=== PATIENT | female | born 1945 | race Caucasian/White ===

== ENCOUNTER → 2017-09-17 | Outpatient (CLI) | payer OTHER, MEDICARE ==
[~2017-09-17] MED LIST: LIDOCAINE 1% 300 MG/30 ML SDV ONE
== END ==
LOC: FIMAGING 14:19
PROVIDERS: ATTEND Internal Medicine Hematology & Oncology
PROC: 0D9W3ZZ Drainage of Peritoneum, Percutaneous Approach (ICD-10-PCS; principal; 2017-09-17)
DX: R18.8 Other ascites (principal)

== ENCOUNTER → 2018-02-08 | Outpatient (CLI) | payer OTHER, MEDICARE | LOC: FIMAGING 10:13 | PROVIDERS: ATTEND Obstetrics & Gynecology Gynecologic Oncology | DX: Z08 Encounter for follow-up examination after completed treatment for malignant neoplasm (principal); R11.2 Nausea with vomiting, unspecified; J98.11 Atelectasis; Z85.43 Personal history of malignant neoplasm of ovary ==

== ENCOUNTER 2018-03-22 14:26 | Inpatient (IN) | payer OTHER, MEDICARE ==
[2018-03-22] MEDS ORDERED: NS 2,300 ML IV ONE (15:51)
--- NOTE | 2018-03-22 15:51 | EDPHY ---
H & P Time Seen by Provider: 03/22/18 15:32 HPI/ROS: CHIEF COMPLAINT: Fever cough and lethargy HISTORY OF PRESENT ILLNESS: Patient is had several days of fever cough and lethargy, per Dr. Novoa a a CT scan performed in March 18 through [facility] she had a new fluid collection which is enhancing between her liver and right diaphragm. The over the weekend she continues to have cough and fever and some sputum production. Denies any chest pain to me. No vomiting or diarrhea. Lethargy is severe and she just feels very tired. REVIEW OF SYSTEMS: Eye: no change in vision ENT: no sore throat Cardiac: no chest pain or syncope Pulmonary: HPI Abdomen: no vomiting, diarrhea, abdominal pain Musculoskeletal: no back pain Skin: no rash Neuro: no headache Constitutional: HPI fever and chills : no urinary symptoms A comprehensive 10 point review of systems is otherwise negative aside from elements mentioned in the history of present illness. PAST MEDICAL HISTORY: Includes ovarian cancer, right knee replacement, hysterectomy Social history: Currently nonsmoker General Appearance: Alert and conversant, cooperative. Eyes: No scleral icterus. ENT, Mouth: Normal mucous membranes. Respiratory: Decreased breath sounds at the bases bilaterally but the patient speaks in full sentences. Cardiovascular: Regular rate and rhythm. Gastrointestinal: Abdomen is soft and non tender. Midline incision is clean dry and intact without surrounding redness or warmth, there is a 2 x 2 gauze over the center of the incision which is clean dry and intact. Neurological: Alert, face symmetric, normal motor and sensory in extremities. Skin: Warm and dry, no rashes. Musculoskeletal: No peripheral edema. Psychiatric: Not agitated. Emergency Department course/MDM: 1550: discussed with Jimenez for Isra. 1608: discussed with Bright: new fluid collection between liver and right diaphragm, enhancing. Dr. Nolen aware at 4:30 p.m.. Admission hospitalist service, will need further evaluation for possible drainage of that fluid collection. No antibiotics at this time. Does not appear septic or toxic. Chest x-ray from today read by Dr. Mcelroy negative for pneumonia. Influenza pending. Smoking Status: Former smoker Constitutional: Initial Vital Signs Temperature (C) 37.3 C 03/22/18 14:34 Heart Rate 91 03/22/18 14:34 Respiratory Rate 16 03/22/18 14:34 Blood Pressure 111/63 03/22/18 14:34 O2 Sat (%) 95 03/22/18 14:34 O2 Delivery Mode Room Air Allergies/Adverse Reactions: codeine Allergy (Unknown, Verified 03/22/18 14:32) Other-Enter Comments Home Medications: Medication Instructions Recorded Cholecalciferol Vit D3 [Vitamin D3 1,000 units PO DAILY 04/06/14 (*)] Docusate Sodium [Colace 100 MG (*)] 100 mg PO BID PRN 09/05/17 Levothyroxine [Synthroid 75 mcg 75 mcg PO DAILY06 09/05/17 (*)] Medical Decision Making - Data Points Laboratory Results: 03/22/18 03/22/18 03/22/18 16:07 16:07 16:07 WBC RBC Hgb Hct MCV MCH MCHC RDW Plt Count MPV Neut % (Auto) Lymph % (Auto) Teller % (Auto) Eos % (Auto) Baso % (Auto) Nucleat RBC Rel Count Absolute Neuts (auto) Absolute Lymphs (auto) Absolute Monos (auto) Absolute Eos (auto) Absolute Basos (auto) Absolute Nucleated RBC Immature Gran % Immature Gran # PT Pending INR Pending APTT Pending VBG Lactic Acid 0.9 mmol/L mmol/L (0.7-2.1) Sodium Pending Potassium Pending Chloride Pending Carbon Dioxide Pending Anion Gap Pending BUN Pending Creatinine Pending Estimated GFR Pending Glucose Pending Calcium Pending 03/22/18 16:07 WBC Pending RBC Pending Hgb Pending Hct Pending MCV Pending MCH Pending MCHC Pending RDW Pending Plt Count Pending MPV Pending Neut % (Auto) Pending Lymph % (Auto) Pending Teller % (Auto) Pending Eos % (Auto) Pending Baso % (Auto) Pending Nucleat RBC Rel Count Pending Absolute Neuts (auto) Pending Absolute Lymphs (auto) Pending Absolute Monos (auto) Pending Absolute Eos (auto) Pending Absolute Basos (auto) Pending Absolute Nucleated RBC Pending Immature Gran % Pending Immature Gran # Pending PT INR APTT VBG Lactic Acid Sodium Potassium Chloride Carbon Dioxide Anion Gap BUN Creatinine Estimated GFR Glucose Calcium Medications Given: Discontinued Medications Sodium Chloride (Ns) 2,300 mls @ 4,600 mls/hr 30 ml/kg infuse over 30 min ( 2300 ml) IV EDNOW ONE PRN Reason: Protocol Stop: 03/22/18 16:20 Last Admin: 03/22/18 16:10 Dose: 2,300 mls Departure - Departure Disposition: [facility] Inpatient Acute Clinical Impression: Intraabdominal fluid collection Condition: Fair
[2018-03-22 16:30] LABS: PLATELET COUNT 310 10^3/uL (150-400)
[2018-03-22 16:41] LABS: INR 1.19 (0.83-1.16); PROTIME(PATIENT) 15.3 SEC (12.0-15.0)
[2018-03-22] MEDS ORDERED: SENNOSIDES/DOCUSATE SODIUM TAB PO PRN (17:30)
[2018-03-22] MEDS ORDERED: LIDOCAINE 2% VISCOUS 15 ML UDCUP PO PRN (17:34)
[2018-03-22] MEDS ORDERED: HYOSCYAMINE SULFATE 0.125 MG TAB PO PRN (17:34)
[2018-03-22] MEDS ORDERED: PROMETHAZINE HCL 25 MG/ML INJ IVP PRN (17:34)
[2018-03-22] MEDS ORDERED: ONDANSETRON 4 MG/2 ML VIAL IVP PRN (17:34)
[2018-03-22] MEDS ORDERED: MAG HYDROX/AL HYDROX/SIMETH 30 ML UDCUP PO PRN (17:34)
[2018-03-22] MEDS ORDERED: D5W 1/2 NS W/ 20 KCl/L 1,000 ML IV SCH (17:45)
--- NOTE | 2018-03-22 17:51 | GHP ---
[f rep st] HISTORY AND PHYSICAL DATE OF ADMISSION: 03/22/2018 CHIEF COMPLAINT: Fever, cough, and lethargy. HISTORY OF PRESENT ILLNESS: This is a 73-year-old female, with a history of stage IV ovarian cancer, who has undergone chemotherapy, as well as a debulking procedure by Dr. Estiven Castelan last month. She presents to the emergency department today with fever, cough, and lethargy. Per ER report, the patient underwent a CT scan of the abdomen on March 18 at [facility] for routine staging status post debulking surgery. Per ER report, the patient was noted to have a new fluid collection, which is enhancing between her liver and right diaphragm. On Wednesday, she developed dry heaves, chills, and body aches. She states that she has been eating. Her bowel movements have been normal. She has been very weak since the onset of her symptoms on Wednesday. PAST MEDICAL HISTORY: 1. Stage IV ovarian cancer, status post debulking procedure by Dr. Estiven Castelan. 2. Right knee replacement. 3. Hysterectomy. HOME MEDICATIONS: Reviewed. Refer to [facility] for details. ALLERGIES: Codeine. SOCIAL HISTORY: The patient denies any alcohol, tobacco, or illicit drug use. She lives in [place] with her . FAMILY HISTORY: Reviewed and noncontributory. REVIEW OF SYSTEMS: The patient reports some chest tightness that is not exertional. It feels like she has burning under her sternum. Comprehensive 10- point review of systems was done and was negative except as mentioned in the HPI. PHYSICAL EXAM: VITAL SIGNS: Blood pressure 128/69, pulse 82, respiratory rate 16, O2 saturation 93% on room air, and temperature afebrile. GENERAL: No acute distress. HEAD: Normocephalic, atraumatic. EYES: PERRLA. Sclerae anicteric. MOUTH: Dry oral mucosa. NECK: Supple. No lymphadenopathy. CARDIOVASCULAR: S1 and S2. No murmurs, rubs, clicks, or gallops. No JVD. No lower extremity edema. PULMONARY: Lungs are clear. No wheezes, rales, or rhonchi. ABDOMEN: Soft, nontender, and nondistended. No guarding or rebound tenderness. Normoactive bowel sounds. There is a vertical incision over the abdomen that is closed and does not appear to be infected. EXTREMITIES: No clubbing or cyanosis. NEUROLOGICAL: Cranial nerves 2 through 12 grossly intact. No focal motor or sensory deficits. SKIN: Clear. No rashes. DIAGNOSTICS: WBC 6.15, hemoglobin 10.8, hematocrit 32.5, and platelets 310. INR 1.19. Venous lactic acid was 0.9. Sodium 135, potassium 4.1, chloride 105 , CO2 of 22, BUN 19, creatinine 0.7, glucose 101, and calcium 9.2. Nasal influenza is pending. ASSESSMENT: This is a 73-year-old female with a history of stage IV ovarian cancer presenting with: 1. Fevers, chills, and cough suspicious for influenza versus below. 2. Reported new fluid collection, which is enhancing between the liver and the diaphragm, which could be a source of infection also causing her symptoms as noted above. 3. Chest pressure, which I suspect is due to reflux. PLAN: 1. Place on observation. 2. Await influenza testing and keep in isolation until those are resulted back. 3. We will consult Interventional Radiology to attempt to drain the fluid collection seen on CT. 4. The patient was scheduled to have a port placed today by Dr. Nolen. Dr. Nolen is aware of her hospitalization. 5. We will consult Oncology. 6. The patient requests to be full code status. ADDENDUM: A chest x-ray done earlier today as an outpatient was reviewed showing a new nodule left lung base. PLAN: I would recommend reviewing the CT of the abdomen that was done at [facility] to see if this nodule is visible. If not, would recommend further workup to further evaluate the nodule seen on chest x-ray. /[id number]/MODL and [id number]/MODL MTDD
[2018-03-22] MEDS: PANTOPRAZOLE SODIUM 40 MG TAB PO SCH (18:52)
[2018-03-22] MEDS: DOCUSATE SODIUM 100 MG CAP PO SCH (21:42)
[2018-03-23] MEDS: LEVOTHYROXINE 75 MCG TAB PO SCH (04:38)
[2018-03-23 05:28] LABS: PLATELET COUNT 264 10^3/uL (150-400)
[2018-03-23] MEDS ORDERED: ceFAZolin 2 GM/DEXTROSE 100 ML IV ONE (07:54)
[2018-03-23] MEDS ORDERED: NALOXONE HCL 0.4 MG/ML INJ IVP PRN (07:54)
[2018-03-23] MEDS ORDERED: fentaNYL 100 MCG/2 ML INJ IVP PRN (07:54)
[2018-03-23] MEDS ORDERED: MIDAZOLAM 2 MG/2 ML VIAL IVP PRN (07:54)
[2018-03-23] MEDS ORDERED: FLUMAZENIL 0.5 MG/5 ML MDV IVP PRN (07:54)
[2018-03-23] MEDS ORDERED: LIDOCAINE 1% 300 MG/30 ML SDV ONE (07:56)
[2018-03-23] MEDS ORDERED: NS 1,000 ML IV SCH (08:00)
[2018-03-23] MEDS ORDERED: NALOXONE HCL 0.4 MG/ML INJ ONE (08:05)
[2018-03-23] MEDS ORDERED: MIDAZOLAM 2 MG/2 ML VIAL ONE (08:06)
[2018-03-23] MEDS: CHOLECALCIFEROL VIT D3 1,000 UNITS TAB PO SCH (08:50)
[2018-03-23] MEDS: PANTOPRAZOLE SODIUM 40 MG TAB PO SCH (08:51)
[2018-03-23] MEDS: ENOXAPARIN 40 MG/0.4 ML SYR SC SCH (08:51)
[2018-03-23] MEDS: DOCUSATE SODIUM 100 MG CAP PO SCH ×3 (08:51→22:11)
--- NOTE | 2018-03-23 09:18 | PDRADPRE ---
Radiology History & Physical Indication for procedure: abscess Significant medical history: other (Stage IV Ovarian cancer) Surgical history: JULIUS/BSO, debulking Home medications: RX: Cholecalciferol Vit D3 [Vitamin D3 (*)] 1,000 units PO DAILY 04/06/14 [Last Taken 09/04/17] RX: Docusate Sodium [Colace 100 MG (*)] 100 mg PO BID 09/05/17 [Last Taken Unknown] RX: Levothyroxine [Synthroid 75 mcg (*)] 75 mcg PO DAILY06 09/05/17 [Last Taken 03/22/18] Sennosides/Docusate Sodium [Senokot-S (OTC)] 4 each PO HS PRN 03/22/18 [Last Taken Unknown] Allergies/Adverse Reactions: codeine Allergy (Unknown, Verified 03/22/18 14:32) Other-Enter Comments Mental status: A&Ox3 Heart exam: regular rate and rhythm Lungs exam: clear to auscultation Mallampati Score: Class 2
--- NOTE | 2018-03-23 09:18 | PDPROPOC ---
Sedation Plan of Care Sedation Plan of Care: vital signs stable, mental status noted, patient educated of risks, benefits, alternatives, patient can tolerate sedation ASA Classification: ASA 2 Planned drugs: fentanyl, midazolam Mallampati Score: Class 2 Mallampati Reference Image: Patient passed 3-3-2 rule?: Yes
--- NOTE | 2018-03-23 10:16 | PDRADPN ---
Radiology Procedure Note Date of Procedure: 03/23/18 Radiologist: Morris Cutler Anesthesia: IV Sedation Pre-op Diagnosis: Stage IV Ovarian cancer; Perihepatic abscess Post-op Diagnosis: same Indication: R/O abscess Procedure: U/S guided abscess drainage Finding(s): 350 mL dark yellow purulent fluid drained w 10 fr drainage catheter Inf/Abcess present in the surg proc area at time of surgery?: Yes Depth: Organ Space EBL: Minimal Drains: Other (10 fr drainage catheter)
[2018-03-23] MEDS: ACETAMINOPHEN 325 MG TAB PO PRN ×2 (11:28→17:38)
[2018-03-23] MEDS ORDERED: oxyCODONE IR 5 MG TAB PO PRN (11:53)
--- NOTE | 2018-03-23 15:01 | ASMTCMCOM ---
CM Note CM Note Notes: Plan of care reviewed in rounds. 73 year old female with history of ovarian cancer with recent tumor debulking presented to ED with nausea and chills and lethargy. Liver abscess identified and drained. Patient normally lives independent with her . CM to follow for needs. Plan: TBD Date Signed: 03/23/2018 03:01 PM Electronically Signed By:Eva Quintero RN
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
--- NOTE | 2018-03-23 18:47 | HOSPPROG ---
Hospitalist Progress Note Assessment/Plan: * Intra-abdominal fluid collection -await culture - antibiotics if positive * Viral URI -resp PCR pending * Stage IIIc ovarian cancer s/p chemo/debulking -further chemo planned with Dr. Dhaliwal once improved * Left pleural effusion -no recurrence on current CXR Subjective: Still with cough but overall improving. Objective: Vital Signs Temp Pulse Resp BP Pulse Ox 36.6 C 73 18 108/56 L 93 03/23/18 15:01 03/23/18 15:01 03/23/18 15:01 03/23/18 15:01 03/23/18 15:01 Microbiology 03/23/18 09:43 Gram Stain - Final Liver - Other Laboratory Results 03/23/18 04:34 03/23/18 04:34 03/22/18 03/23/18 03/24/18 05:59 05:59 05:59 Intake Total 1274 Output Total 380 Balance 894 PT 15.3 SEC (12.0-15.0) H 03/22/18 16:07 INR 1.19 (0.83-1.16) H 03/22/18 16:07 CXR viewed, my personal interpretation is - negative d/w DR. dhaliwal regarding plan for fluid collection - Physical Exam Constitutional: no apparent distress, appears nourished, not in pain Cardiovascular: regular rate and rhythym, no murmur, rub, or gallop Respiratory: no respiratory distress, no rales or rhonchi, clear to auscultation Gastrointestinal: normoactive bowel sounds, soft, non-tender abdomen, no palpable masses Skin: no rashes or abrasions, no fluctuance, no induration Neurologic: AAOx3, sensation intact bilaterally Psychiatric: interacting appropriately, not anxious, not encephalopathic, thought process linear ICD10 Worksheet Patient Problems: Problems Problem Status Onset Osteoarthritis of knee Acute Abdominal carcinomatosis Acute Pleural effusion on left Acute Lesion of liver Acute Malignant ascites Acute Intraabdominal fluid collection Acute
[2018-03-24] MEDS: ACETAMINOPHEN 325 MG TAB PO PRN (03:24)
[2018-03-24] MEDS: LEVOTHYROXINE 75 MCG TAB PO SCH (05:11)
[2018-03-24] MEDS: ENOXAPARIN 40 MG/0.4 ML SYR SC SCH (08:20)
[2018-03-24] MEDS: CHOLECALCIFEROL VIT D3 1,000 UNITS TAB PO SCH (08:20)
[2018-03-24] MEDS: DOCUSATE SODIUM 100 MG CAP PO SCH ×2 (08:20→20:21)
--- NOTE | 2018-03-24 08:49 | PDMN ---
Medical Necessity Medical necessity: Pt meets IP criteria as of 03/23/2018 per and FITO REED ( gastroenterology [facility]); los > 2mn for ongoing tx and management of perihepatic post operative fluid collection in the setting of stage IIIC ovarian cancer on chemotherapy as well as URI with cough, fever and chills; requiring IR consultation with u/s guided abcess drainage, further workup, oncology consultation, and PT/OT.
[2018-03-24] MEDS ORDERED: ALBUTEROL 3 ML DEYVIAL IH PRN (15:44)
[2018-03-24] MEDS ORDERED: guaiFENesin/CODEINE PHOS 10 ML UDCUP PO PRN (15:45)
[2018-03-24] MEDS ORDERED: BENZONATATE 100 MG CAP PO PRN (15:45)
--- NOTE | 2018-03-24 15:49 | HOSPPROG ---
Hospitalist Progress Note Assessment/Plan: * Intra-abdominal fluid collection s/p IR drain -abscess vs. malignant vs. post-op recent debulking -cultures negative - hold abx unless positive -cytology pending -still high GABBY drain output * Viral URI -supportive care, still very weak/SOB -consider w/u PE if resp difficulties continue - CXR negative * Stage IIIc ovarian cancer s/p chemo/debulking -further chemo planned with Dr. Dhaliwal once improved * Weakness -may need SNF, continue PT/OT Subjective: Still very weak, coughing Objective: Vital Signs Temp Pulse Resp BP Pulse Ox 36.7 C 83 18 132/64 H 90 L 03/24/18 11:53 03/24/18 11:53 03/24/18 11:53 03/24/18 11:53 03/24/18 11:53 03/23/18 03/24/18 03/25/18 05:59 05:59 05:59 Intake Total 1074 240 Output Total 70 20 Balance 1004 220 PT 15.3 SEC (12.0-15.0) H 03/22/18 16:07 INR 1.19 (0.83-1.16) H 03/22/18 16:07 - Physical Exam Constitutional: no apparent distress, appears nourished, not in pain Cardiovascular: regular rate and rhythym, no murmur, rub, or gallop Respiratory: respiratory distress, No expiratory wheeze, No inspiratory crackles , No rhonchi Gastrointestinal: normoactive bowel sounds, soft, non-tender abdomen, no palpable masses Skin: no rashes or abrasions, no fluctuance, no induration Neurologic: AAOx3, sensation intact bilaterally Psychiatric: interacting appropriately, not anxious, not encephalopathic, thought process linear ICD10 Worksheet Patient Problems: Problems Problem Status Onset Intraabdominal fluid collection Acute Abdominal carcinomatosis Acute Lesion of liver Acute Malignant ascites Acute Osteoarthritis of knee Acute Pleural effusion on left Acute
--- NOTE | 2018-03-24 16:24 | ASMTCMCOM ---
CM Note CM Note Notes: Pt spoke with RN, Palliative Care was ordered. At this time PT rec: HHC vs SNF. CM to follow as needs progress. Plan: HHC vs SNF Date Signed: 03/24/2018 04:23 PM Electronically Signed By:ANDRA Hughes
[2018-03-24] MEDS: guaiFENesin 600 MG TAB.ER PO SCH (20:23)
[2018-03-25 05:02] LABS: PLATELET COUNT 273 10^3/uL (150-400)
[2018-03-25] MEDS: LEVOTHYROXINE 75 MCG TAB PO SCH (05:42)
--- NOTE | 2018-03-25 11:53 | ASMTCMCOM ---
CM Note CM Note Notes: Pt met with Ira and is choosing to have out-pt palliative care with [facility]. A referral will be sent to [facility] for palliative care. D/C Plan: SNF vs HHC, [facility] Date Signed: 03/25/2018 11:52 AM Electronically Signed By:Rafia Miller
[2018-03-25] MEDS: guaiFENesin 600 MG TAB.ER PO SCH ×2 (12:14→21:33)
[2018-03-25] MEDS: CHOLECALCIFEROL VIT D3 1,000 UNITS TAB PO SCH (12:15)
[2018-03-25] MEDS: DOCUSATE SODIUM 100 MG CAP PO SCH ×2 (12:15→21:33)
--- NOTE | 2018-03-25 14:57 | HOSPPROG ---
Hospitalist Progress Note Assessment/Plan: # intra-abdominal abscess s/p IR placed GABBY drain - recent debulking procedure last month - growing bacteroides thetaiotamicron - start unasyn (informally discussed with Dr Rojas) - recheck CT scan to evaluate drainage # stage IIIc ovarian cancer - chemo with Dr Dhaliwal when abscess resolved # viral URI - pcr negative Subjective: patient seen with her ; we discussed her culture data in depth Objective: Vital Signs Temp Pulse Resp BP Pulse Ox 36.8 C 82 16 126/66 H 90 L 03/25/18 11:30 03/25/18 11:30 03/25/18 11:30 03/25/18 11:30 03/25/18 11:30 Laboratory Results 03/25/18 04:48 03/24/18 03/25/18 03/26/18 05:59 05:59 05:59 Intake Total 1074 560 Output Total 70 40 Balance 1004 520 PT 15.3 SEC (12.0-15.0) H 03/22/18 16:07 INR 1.19 (0.83-1.16) H 03/22/18 16:07 - Time Spent With Patient Time Spent with Patient: greater than 35 minutes Time Spent with Patient: Greater than 35 minutes spent on this patients care, greater than 50% of time spent counseling, educating, and coordinating care regarding the above mentioned plan. ICD10 Worksheet Patient Problems: Problems Problem Status Onset Osteoarthritis of knee Acute Abdominal carcinomatosis Acute Pleural effusion on left Acute Lesion of liver Acute Malignant ascites Acute Intraabdominal fluid collection Acute
[2018-03-25] MEDS ORDERED: IOHEXOL 300 mgI/ML (OMNIPAQUE) 150 ML BTL IV ONE (16:01)
[2018-03-25] MEDS: ENOXAPARIN 40 MG/0.4 ML SYR SC SCH (17:08)
[2018-03-25] MEDS: AMPICILLIN/SULBACTAM 3 GM in NS 100 ML IV SCH ×2 (17:08→21:33)
--- NOTE | 2018-03-25 17:55 | SOAPPROG ---
SOAP Progress Note Assessment/Plan: A/P: * Periphepatic abscess (Bacteroides) following interval debulking surgery: repeat CT to evaluate adequate drainage of fluid collection. IV abx (Unasyn). She is not toxic, this was incidentally discovered. Can be discharged soon. * IIIC ovarian cancer: s/p neoadjuvant chemo and interval debulking with no gross residual disease. Plan to resume chemo once infection resolved. She is getting set up with [facility]. 03/25/18 17:53 Subjective: S: No new complaints. O: VS reviewed, AF Gen: up in room, NAD. Lungs: breathing comfortably. Abd: GABBY drain with serosanguinous fluid. Laboratory Tests 03/25/18 04:48 WBC 3.41 L Hgb 10.9 L Plt Count 273 Absolute Neuts (auto) 2.15 Fluid cx - Bacteroides thetaiotamicron Objective: Vital Signs Temp Pulse Resp BP Pulse Ox 37.0 C 86 18 120/74 92 03/25/18 16:00 03/25/18 16:00 03/25/18 16:00 03/25/18 16:00 03/25/18 16:00 Laboratory Results 03/25/18 04:48 03/24/18 03/25/18 03/26/18 05:59 05:59 05:59 Intake Total 1074 560 500 Output Total 70 40 10 Balance 1004 520 490 PT 15.3 SEC (12.0-15.0) H 03/22/18 16:07 INR 1.19 (0.83-1.16) H 03/22/18 16:07 ICD10 Worksheet Patient Problems: Problems Problem Status Onset Intraabdominal fluid collection Acute Abdominal carcinomatosis Acute Lesion of liver Acute Malignant ascites Acute Osteoarthritis of knee Acute Pleural effusion on left Acute
[2018-03-26] MEDS: AMPICILLIN/SULBACTAM 3 GM in NS 100 ML IV SCH ×3 (03:48→15:17)
[2018-03-26] MEDS: LEVOTHYROXINE 75 MCG TAB PO SCH (05:22)
[2018-03-26] MEDS: guaiFENesin 600 MG TAB.ER PO SCH (09:52)
[2018-03-26] MEDS: DOCUSATE SODIUM 100 MG CAP PO SCH (09:52)
[2018-03-26] MEDS: ENOXAPARIN 40 MG/0.4 ML SYR SC SCH (09:52)
[2018-03-26] MEDS: CHOLECALCIFEROL VIT D3 1,000 UNITS TAB PO SCH (09:52)
[2018-03-26] MEDS: ACETAMINOPHEN 325 MG TAB PO PRN (13:59)
--- NOTE | 2018-03-26 14:53 | PDIAF ---
- Diagnosis Diagnosis: Intraabdominal Abscess Code Status: Full Code - Medication Management Discharge Medications: electronically signed and located in the Home Medication List. - Orders Services needed: Home Care, Registered Nurse, Physical Therapy, Occupational Therapy Home Care Face to Face: I certify that this patient was under my care and that I had the required [id number] encounter meeting the encounter requirements on the discharge day. My findings support the fact that the patient is homebound as defined in Home Care Face to Face Continued: CMS Chapter 7 Medicare Benefits Manual 30.1.1 , The condition of the patient is such that there exists a normal inability to leave home and consequently, leaving home would require a considerable and taxing effort. Isolation Type: None Diet Recommendation: no restrictions on diet Additional Instructions: Take Imodium if you have a little diarrhea. If you have significant diarrhea, please go to the ED. You will need another CT scan around the time that you are completing your antibiotics (approx 04/06/18). - Follow Up Care Current Providers and Referrals: Dulce Dhaliwal MD [Medical Doctor] - Kathi Yo MD [Primary Care Provider] - As per Instructions
--- NOTE | 2018-03-26 14:57 | ASMTLACE ---
LACE Length of stay for Answers: 2 days current admission Acuity / Level of Answers: Yes Care: Did the patient have an inpatient admission? Comorbidities - select Answers: Any tumor (including all that apply lymphoma or leukemia) Opioid dependence / Chronic pain # of Emergency department Answers: 1-2 visits in the last 6 months Score: 12 Date Signed: 03/26/2018 02:57 PM Electronically Signed By:Rafia Miller
[2018-03-26 15:07] VITALS: BP 113/61
--- NOTE | 2018-03-26 15:15 | ASMTDCNOTE ---
Case Management Discharge Discharge Order Complete? Answers: Yes Patient to Obtain Answers: via Family Medications Transportation Arranged Answers: Family/Friends Faxed Final Orders Answers: Yes Agency/Facility Transfer Answers: Yes Report Printed & Faxed to Receiving Agency Family Notified Answers: Yes Discharge Comments Notes: [facility] alerted that pt is d/cing. [facility] accepted for in-home PT/OT/RN. Notes/reports sent to [facility]. Date Signed: 03/26/2018 03:14 PM Electronically Signed By:Rafia Miller
--- NOTE | 2018-03-26 15:32 | GDS ---
[f rep st] DISCHARGE SUMMARY FINAL DIAGNOSES: 1. Bacteroides thetaiotaomicron intraabdominal abscess status post interventional radiology drainage . 2. Stage IIIC ovarian cancer. 3. Suspected viral upper respiratory infection with ongoing cough. HOSPITAL COURSE: This is a 73-year-old female who underwent a recent debulking procedure for stage I IIC ovarian cancer. On staging CT scan, an incidental abscess was noted next to her liver. She was admitted to the hospital. This was drained by Interventional Radiology with 350 cc of purulent fluid . Culture for this has grown out Bacteroides thetaiotaomicron. She has been started on Unasyn. She will be switched to Augmentin on the day of discharge. Infectio us Disease has been informally consulted and agrees with this management. Recommend a long course of antibiotics given the size of the abscess. Will do a total of 14 days. She should have a followup CT scan as an outpatient to confirm resolution of the abscess close to the end of her antibiotic cour se. I have discussed with Dr. Skelton. He will coordinate with Dr. Dulce Dhaliwal to get this ordered. She is otherwise discharged in stable condition. I gave her side effects of Augmentin therapy. She also had a drain pulled today with some pain. Gave her return precautions for this. She is otherwis e discharged in stable condition. FOLLOWUP: 1. Dr. Yo as needed. 2. Dr. Dulec Dhaliwal for ongoing management of her ovarian cancer as well as a followup CT scan toward t he end of her antibiotic course, approximately April 06. BILLING: I spent more than 30 minutes on the day of discharge coordinating care. /[id number]/MODL
--- NOTE | 2018-03-28 13:38 | ASDISCHSUM ---
Discharge Information Plan Status:Home with Home Health Medically Cleared to Leave: Discharge Date:03/26/2018 05:30 PM CM D/C Disposition:Home Health Service ADT D/C Disposition:Home, Routine, Self-Care Projected Discharge Date:03/26/2018 11:00 AM Transportation at D/C:Family Discharge Delay Reason: Follow-Up Date:03/26/2018 11:00 AM Discharge Slot: Final Diagnosis: Placement Information Referral Type:Palliative Care Referral ID:[id number] Provider Name:[facility] ([facility]) Address 1:[address] [place] Address 2: City:[place] Selection Factors: State:[place] Patient Contact Information Contact Name:ANAM Relationship: Address:[address] [place] [address] City:[place] Alternate Phone: State/Zip Code:[place] [address] Email: Financial Information Financial Class:Medicare Primary Plan Desc:MEDICARE INPATIENT Primary Plan Number:[id number] Secondary Plan Desc:MALIK/MDR SUPPLEMENT Secondary Plan Number:[id number] Assessment Information LACE LACE Length of stay for Answers: 2 days current admission Acuity / Level of Answers: Yes Care: Did the patient have an inpatient admission? Comorbidities - select Answers: Any tumor (including all that apply lymphoma or leukemia) Opioid dependence / Chronic pain # of Emergency department Answers: 1-2 visits in the last 6 months Score: 12 Date Signed: 03/26/2018 02:57 PM Electronically Signed By:Rafia Miller [facility] CM Progress Note CM Note CM Note Notes: Plan of care reviewed in rounds. 73 year old female with history of ovarian cancer with recent tumor debulking presented to ED with nausea and chills and lethargy. Liver abscess identified and drained. Patient normally lives independent with her . CM to follow for needs. Plan: TBD Date Signed: 03/23/2018 03:01 PM Electronically Signed By:Eva Quintero RN [facility] CM Progress Note CM Note CM Note Notes: Pt spoke with RN, Palliative Care was ordered. At this time PT rec: HHC vs SNF. CM to follow as needs progress. Plan: HHC vs SNF Date Signed: 03/24/2018 04:23 PM Electronically Signed By:ANDRA Hughes [facility] CM Progress Note CM Note CM Note Notes: Pt met with Ira and is choosing to have out-pt palliative care with [facility]. A referral will be sent to [facility] for palliative care. D/C Plan: SNF vs [facility] Date Signed: 03/25/2018 11:52 AM Electronically Signed By:Rafia Miller Case Management Discharge Plan Note Case Management Discharge Discharge Order Complete? Answers: Yes Patient to Obtain Answers: via Family Medications Transportation Arranged Answers: Family/Friends Faxed Final Orders Answers: Yes Agency/Facility Transfer Answers: Yes Report Printed & Faxed to Receiving Agency Family Notified Answers: Yes Discharge Comments Notes: [facility] Pall[facility] alerted that pt is d/cing. [facility] accepted for in-home PT/OT/RN. Notes/reports sent to [facility]. Date Signed: 03/26/2018 03:14 PM Electronically Signed By:Rafia Miller Intervention Information Intervention Type:*Incorrect Registration Date of Service:03/22/2018 11:20 AM Patient Type:Inpatient Staff Member:Sheila Le Hours: Discipline: Severity: Comment:
== END 2018-03-26 17:30 | disposition home health service (06) | DRG 442 ==
LOC: INTOOBSV 16:23 → F1N 20:00 → OBSVTOIN 03-23 16:05
PROVIDERS: ADMIT Family Medicine; ATTEND Family Medicine
PROC: 0F9030Z Drainage of Liver with Drainage Device, Percutaneous Approach (ICD-10-PCS; principal; 2018-03-23 10:20)
DX: K75.0 Abscess of liver (principal); C56.9 Malignant neoplasm of unspecified ovary; B96.89 Other specified bacterial agents as the cause of diseases classified elsewhere; J06.9 Acute upper respiratory infection, unspecified; K21.9 Gastro-esophageal reflux disease without esophagitis; E03.9 Hypothyroidism, unspecified; Z96.651 Presence of right artificial knee joint; Z72.0 Tobacco use; Z90.710 Acquired absence of both cervix and uterus
CPT/HCPCS: 97116-GP; 97161-GP; 97165-GO; 97530-GO; 97530-GP; 97535-GO; G0378; J0295; J0690; J1650; J2250; J2310; J3010; Q9967

== ENCOUNTER → 2018-03-22 | Outpatient (CLI) | payer OTHER, MEDICARE | LOC: FIMAGING 11:53 | PROVIDERS: ATTEND Internal Medicine Hematology & Oncology | DX: R91.8 Other nonspecific abnormal finding of lung field (principal); R07.9 Chest pain, unspecified; K44.9 Diaphragmatic hernia without obstruction or gangrene; Z85.43 Personal history of malignant neoplasm of ovary ==

== ENCOUNTER 2018-04-11 08:10 | Day surgery (SDC) | payer OTHER, MEDICARE ==
[2018-04-11] MEDS ORDERED: ceFAZolin 2 GM/DEXTROSE 100 ML IV ONE (08:28)
[2018-04-11] MEDS ORDERED: LR 1,000 ML IV ONE (08:29)
--- NOTE | 2018-04-11 08:43 | PDHPUP ---
History & Physical Update H&P update statement: This history and physical update is based on an assessment of the patient which was completed after admission or registration (within 24 hours), but prior to the surgery/procedure. H&P update: H&P reviewed & patient examined, no change in patient's condition since H&P completed
[2018-04-11] MEDS ORDERED: BUPIVACAINE 0.5% 30 ML SDV ONE (09:34)
--- NOTE | 2018-04-11 10:12 | PDANEPAE ---
ANE History of Present Illness chemoport ANE Past Medical History - Cardiovascular History Hx Hypertension: No Hx Arrhythmias: No Hx Chest Pain: No Hx Coronary Artery / Peripheral Vascular Disease: No Hx CHF / Valvular Disease: No Hx Palpitations: No - Pulmonary History Hx COPD: No Hx Asthma/Reactive Airway Disease: No Hx Recent Upper Respiratory Infection: No Hx Oxygen in Use at Home: No Hx Sleep Apnea: No Sleep Apnea Screening Result - Last Documented: Negative Pulmonary History Comment: DENIES SOB W STAIRS - Neurologic History Hx Cerebrovascular Accident: No Hx Seizures: No Hx Dementia: No - Endocrine History Hx Diabetes: No Endocrine History Comment: LOW THYROID - Renal History Hx Renal Disorders: No - Liver History Hx Hepatic Disorders: No - Neurological & Psychiatric Hx Hx Neurological and Psychiatric Disorders: No Neurological / Psychiatric History Comment: deppression - Cancer History Hx Cancer: Yes Cancer History Comment: stage 4 OVARIAN - Congenital Disorder History Hx Congenital Disorders: Yes Congenital History Comment: MOTHER AND AUNTS BREAST CANCER - GI History Hx Gastrointestinal Disorders: Yes Gastrointestinal History Comment: POLYPS - Other Health History Other Health History: OBSRVATION FOR MACULAR DEGENERATION. FIBOIDS UTERUS. OSTEOPENIA. OVARIAN CANCER - Chronic Pain History Chronic Pain: Yes (R KNEE) - Surgical History Prior Surgeries: BERNABE BUNIONS. SEVERAL R KNEE SCOPE. TONSILS. TUBAL LIGATION. VAG HYST W BLADDER REP. debulking surgery bernard GOODE Review of Systems Review of Systems: - Exercise capacity METS (RN): 4 METS ANE Patient History - Allergies Allergies/Adverse Reactions: codeine Allergy (Unknown, Verified 03/22/18 14:32) Other-Enter Comments - Home Medications Home Medications: Cholecalciferol Vit D3 [Vitamin D3 (*)] 04/06/14 [Last Taken 1 Week Ago ~] Docusate Sodium [Colace 100 MG (*)] 09/05/17 [Last Taken 04/10/18] Levothyroxine [Synthroid 75 mcg (*)] 09/05/17 [Last Taken 04/11/18 07:00] - NPO status NPO Status: no food or drink >8 hours NPO Since - Liquids (Date): 04/10/18 NPO Since - Liquids (Time): 11:59 NPO Since - Solids (Date): 04/10/18 NPO Since - Solids (Time): 20:00 - Anes Hx Anes Hx: no prior problems - Smoking Hx Smoking Status: Former smoker - Alcohol Use Alcohol Use: Rarely - Family Anes Hx Family Anes Hx: none Family Hx Anesthesia Complications: NONE ANE Labs/Vital Signs - Vital Signs Blood Pressure: 132/71 Heart Rate: 61 Respiratory Rate: 16 O2 Sat (%): 97 Height: 157.48 cm Weight: 74.843 kg ANE Physical Exam - Airway Neck exam: FROM Mallampati Score: Class 2 Mouth exam: normal dental/mouth exam - Pulmonary Pulmonary: no respiratory distress, clear to auscultation - Cardiovascular Cardiovascular: regular rate and rhythym, no murmur, rub, or gallop - ASA Status ASA Status: III ANE Anesthesia Plan Anesthesia Plan: GA w LMA
[2018-04-11] MEDS ORDERED: MIDAZOLAM 2 MG/2 ML VIAL IVP ONE (10:15)
--- NOTE | 2018-04-11 10:16 | POSTOPPROG ---
Post Op Note Date of Operation: 04/11/18 Surgeon: Lalo Nolen Director New Product: Marva Varma Anesthesiologist: Delfino Maciel Anesthesia: GET(General Endotracheal) Pre-op Diagnosis: ovarian CA Post-op Diagnosis: same Procedure: power port placement c flouroscopy Findings: good position and flow Inf/Abcess present in the surg proc area at time of surgery?: No EBL: Minimal Complications: none Specimen(s): none
[2018-04-11] MEDS ORDERED: PROPOFOL 200 MG/20 ML VIAL ONE (10:20)
[2018-04-11] MEDS ORDERED: LIDOCAINE 2% 100 MG/5 ML SYR ONE (10:20)
[2018-04-11] MEDS ORDERED: fentaNYL 100 MCG/2 ML INJ ONE (10:20)
[2018-04-11] MEDS ORDERED: MIDAZOLAM 2 MG/2 ML VIAL ONE (10:23)
[2018-04-11] MEDS ORDERED: oxyCODONE IR 5 MG TAB PO PRN (11:09)
[2018-04-11] MEDS ORDERED: HYDROCODONE/APAP 5/325 TAB PO PRN (11:09)
[2018-04-11] MEDS ORDERED: ONDANSETRON 4 MG/2 ML VIAL IVP PRN (11:09)
[2018-04-11] MEDS ORDERED: ACETAMINOPHEN 500 MG TAB PO PRN (11:09)
[2018-04-11] MEDS ORDERED: fentaNYL 100 MCG/2 ML INJ IVP PRN (11:09)
[2018-04-11] MEDS ORDERED: NALOXONE HCL 0.4 MG/ML INJ IVP PRN (11:09)
[2018-04-11] MEDS ORDERED: PROMETHAZINE HCL 25 MG/ML INJ IVP PRN (11:09)
--- NOTE | 2018-04-11 11:23 | POSTANESTH ---
Post Anesthetic Evaluation Cardiovascular Status: Normal, Stable, Similar to Pre-Op Cond Respiratory Status: Normal, Stable, Similar to Pre-op Cond. Level of Consciousness/Mental Status: Can Participate in Eval, Mildly Sleepy, Arousable Pain Control: Adequate, Prn Tx Ordered Nausea/Vomiting Control: Adequate, Prn Tx Ordered Complications Possibly Related to Anesthesia: None Noted
[2018-04-11 14:16] VITALS: BP 139/70
--- NOTE | 2018-04-14 09:44 | GOP ---
[f rep st] OPERATIVE REPORT DATE OF OPERATION: 04/11/2018 SURGEON: Lalo Nolen MD ACTIVITY AIDE: Marva Varma, ERMA. ANESTHESIA: Dr. Maciel. PREOPERATIVE DIAGNOSIS: Ovarian cancer. POSTOPERATIVE DIAGNOSIS: Ovarian cancer. PROCEDURE PERFORMED: Right subclavian PowerPort placement with fluoroscopic guidance. FINDINGS: The patient was noted to have good flow and good position of the catheter. DESCRIPTION OF PROCEDURE: The patient was taken to the operating room where she received satisfactor y general endotracheal anesthesia by Dr. Maciel. She was placed in supine position, prepped and drape d in the usual sterile fashion. A direct stick was made in the right subclavian vein. Guidewire was introduced. Position was confir med with fluoroscopy. A subcu pocket was made in the 2nd intercostal space. Port tubing was passed from that pocket to the subclavian insertion site and trimmed to the appropriate length using fluoros copic guidance. It was then introduced via the introducer sheath into the right atrium. Good backfl ow was achieved. The catheter was flushed with heparin saline. The port was secured to the fascia w ith 3-0 Vicryl, and the pocket was closed with 3-0 Vicryl for the subcu, 4-0 Prolene subcuticular sti tch for the skin. The entrance site was closed with Prolene mattress suture. All wounds were infilt rated with 0.5% Marcaine. There were no complications. Taken to the recovery room in good condition . Copy requested to: [facility] /[id number]/MODL
== END 2018-04-11 14:30 | disposition home or self-care (01) ==
LOC: FSGY 08:10
PROVIDERS: ATTEND Surgery
DX: C56.9 Malignant neoplasm of unspecified ovary (principal); E03.9 Hypothyroidism, unspecified; Z80.3 Family history of malignant neoplasm of breast
CPT/HCPCS: C1788; J0690; J1642; J2001; J2250; J2704; J3010